=== PATIENT | female | born 1995 | race African-American/Black ===

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

== ENCOUNTER 2017-02-23 12:26 | Inpatient (IN) | payer OTHER ==
[~2017-02-23] VITALS: Ht 175.3 cm; Wt 95.7 kg
[~2017-02-23 12:26] MED LIST changes: -NAPR250T2 PO; +NAPR250T6 PO
[2017-02-23] MEDS ORDERED: CITRIC ACID/SODIUM CITRATE 30 ML SOLUTION. PO PRN (13:00)
[2017-02-23] MEDS ORDERED: AMPICILLIN SODIUM 2 GM in IV NORMAL SALINE 100ML 100 ML IV ONE (13:00)
[2017-02-23] MEDS ORDERED: LIDOCAINE 1% PF 30 ML VIAL. INJ PRN (13:00)
[2017-02-23] MEDS ORDERED: MAG HYDROX/ALUMINUM HYD/SIMETH 30 ML ORAL.SUSP PO PRN ×2 (13:00→13:30)
[2017-02-23] MEDS ORDERED: IBUPROFEN 600 MG TABLET. PO PRN (13:00)
[2017-02-23] MEDS ORDERED: TERBUTALINE 1 MG/ML VIAL. SQ PRN (13:00)
[2017-02-23] MEDS ORDERED: OXYTOCIN 30 UNIT/500 ML PREMIX 500 ML IV PRN ×3 (13:00→13:30)
[2017-02-23] MEDS ORDERED: AMPICILLIN SODIUM IV Push 2 GM VIAL. IVP ONE (13:00)
[2017-02-23] MEDS ORDERED: BUTORPHANOL 2 MG/ML VIAL. IV PRN ×2 (13:00)
[2017-02-23] MEDS ORDERED: 0.9 % SODIUM CHLORIDE 10 ML DISP.SYRIN. IV PRN ×2 (13:00→13:30)
--- NOTE | 2017-02-23 13:27 | PDOC1 ---
OB - History Hx of Present Care: Limited Care Ultrasounds: Normal mid trimester US Obstetrical Complications: None Medical Complications: None Past Family/Social History * Past Medical, Surgical, Family and Obstetric Histories reviewed from chart. Blood Type: Unknown Rubella: Unknown RPR/VDRL: Unknown GBS Status: Unknown HBsAG: Unknown OB - Chief Complaint & HPI Date of Admission: Date of Admission: Feb 23, 2017 at 12:26 Chief Complaint/History : 1 Para: 0 EDC: Feb 09, 2017 Reason for admission: active labor Problems: OB - Admission Exam Physical Exam HEENT: Normal, Nasal Mucosa Normal, Oropharynx Normal, Moist Membranes, Fontanelles Normal Heart: Regular Rate Lungs: Clear, Equal Abdomen: Gravid Extremities: Normal Pulses, No tenderness or swelling Reflexes: Normal Cervical Dilatation: 10cm Station: +3 Membranes: Ruptured Heart Rate: Normal Accelerations: Accelerations Present Contractions on Admission: < 5 Minutes Apart Intensity: Firm Assessment/Plan Assessment/Plan TIUP Labor ACSVD Problems: MADELINE KNIGHT MD Feb 23, 2017 13:27
--- NOTE | 2017-02-23 13:29 | PDOC ---
VAGINAL DELIVERY DATE DATE: 02/23/17 TIME: 13:27 : 1 EDC: Feb 09, 2017 VAGINAL DELIVERY: VTX VACCUM ASSISTED: No PLACENTA: Spontaneous SEX: Female WEIGHT 4105gm Nuchal Cord: No Amniotic Fluid: Clear PAIN: Natural EXTENSION: Yes EBL 400cc COMPLICATIONS None CONDITION Stable Signs of Intrauterine Infectio: None Shoulder Dystocia: No DIAGNOSIS TIUP del Problems: MADELINE KNIGHT MD Feb 23, 2017 13:29
[2017-02-23] MEDS ORDERED: ZOLPIDEM 5 MG TABLET. PO PRN (13:30)
[2017-02-23] MEDS ORDERED: diphenhydrAMINE HCL 25 MG CAPSULE PO PRN (13:30)
[2017-02-23] MEDS ORDERED: ACETAMINOPHEN 325 MG TABLET. PO PRN (13:30)
[2017-02-23] MEDS ORDERED: BENZOCAINE 20% TOPICAL AEROSOL SPRAY 57GM CAN. TP PRN (13:30)
[2017-02-23] MEDS ORDERED: SIMETHICONE 80 MG TAB.CHEW PO PRN (13:30)
[2017-02-23] MEDS ORDERED: HYDROCORTISONE 1% TOPICAL OINTMENT 30GM TUBE. TP PRN (13:30)
[2017-02-23] MEDS ORDERED: PHENYLEPH/MINERAL OIL/PETROLAT RECTAL OINTMENT 28GM TUBE. RC PRN (13:30)
[2017-02-23] MEDS ORDERED: MAGNESIUM HYDROXIDE 2,400 MG/30 ML ORAL.SUSP. PO PRN (13:30)
--- NOTE | 2017-02-23 13:31 | PDOC3 ---
OB DISCHARGE SUMMARY DATE OF ADMISSION: 02/23/17 DATE OF DISCHARGE: 02/25/17 REASON FOR ADMISSION: Onset of labor PROCEDURES: Ultrasound INTRAPARTUM PROCEDURES: Spontanous Vag Deliv PROCEDURES: None OPERATIONS: None DISCHARGE DIAGNOSIS: Term Delivered DISCHARGE INFORMATION: Activity, Diet HOSPITAL COURSE Unremarkable CONDITION AT DISCHARGE Stable MADELINE KNIGHT MD Feb 23, 2017 13:31
[2017-02-23 14:04] LABS: HEMATOCRIT 30.9 % (36.0-47.0); HEMOGLOBIN 9.9 g/dL (12.0-15.5); RED BLOOD COUNT 3.95 x10^6/uL (3.50-5.40); WHITE BLOOD COUNT 11.2 x10^3/uL (4.0-11.0)
[2017-02-23] MEDS: IV RINGERS,LACTATED 1000ML 1,000 ML IV SCH ×2 (14:10→20:32)
[2017-02-23 14:42] VITALS: BP 132/77
[2017-02-23 15:30] VITALS: BP 97/58
[2017-02-23] MEDS: IBUPROFEN 800 MG TABLET. PO SCH (15:55)
[2017-02-23] MEDS ORDERED: FERROUS SULFATE 325 MG TABLET. PO SCH (17:00)
[2017-02-23 18:44] VITALS: BP 105/55
[2017-02-23 19:20] VITALS: BP 114/73
[2017-02-24 00:01] VITALS: BP 107/59
[2017-02-24] MEDS: IBUPROFEN 800 MG TABLET. PO SCH ×4 (00:04→20:24)
[2017-02-24 06:25] VITALS: BP 106/57
[2017-02-24 09:00] VITALS: BP 108/70
[2017-02-24] MEDS ORDERED: DOCUSATE SODIUM 100 MG CAPSULE. PO PRN (09:30)
[2017-02-24] MEDS: FERROUS SULFATE 325 MG TABLET. PO SCH (10:02)
--- NOTE | 2017-02-24 13:17 | PDOC ---
OB Progress Note Date of Service 02/24/17 Time of Evaluation 1315 Notes Pt. feeling well. No complaints. Lab Laboratory Tests Test 02/23/17 13:45 02/24/17 08:20 White Blood Count 11.2 x10^3/uL (4.0-11.0) Red Blood Count 3.95 x10^6/uL (3.50-5.40) Hemoglobin 9.9 g/dL (12.0-15.5) Hematocrit 30.9 % (36.0-47.0) 26.6 % (36.0-47.0) Mean Corpuscular Volume 78 fL (79-100) Mean Corpuscular Hemoglobin 25 pg (25-35) Mean Corpuscular Hemoglobin Concent 32 g/dL (31-37) Red Cell Distribution Width 13.0 % (11.5-14.5) Platelet Count 236 x10^3/uL (140-400) Laboratory Tests Test 02/23/17 13:45 02/24/17 08:20 White Blood Count 11.2 x10^3/uL (4.0-11.0) Red Blood Count 3.95 x10^6/uL (3.50-5.40) Hemoglobin 9.9 g/dL (12.0-15.5) Hematocrit 30.9 % (36.0-47.0) 26.6 % (36.0-47.0) Mean Corpuscular Volume 78 fL (79-100) Mean Corpuscular Hemoglobin 25 pg (25-35) Mean Corpuscular Hemoglobin Concent 32 g/dL (31-37) Red Cell Distribution Width 13.0 % (11.5-14.5) Platelet Count 236 x10^3/uL (140-400) Medications Current Medications Sodium Chloride (Normal Saline Flush) 3 ml QSHIFT PRN IV AFTER MEDS AND BLOOD DRAWS; Start 02/23/17 at 13:00; Stop 02/23/17 at 20:40; Status DC Ringer's Solution 1,000 ml @ 125 mls/hr Q8H IV Last administered on t 14:10; Start 02/23/17 at 13:00; Stop 02/23/17 at 20:40; Status DC Butorphanol Tartrate (Stadol) 1 mg PRN Q1HR PRN IV mild to moderate labor pain ; Start 02/23/17 at 13:00 Butorphanol Tartrate (Stadol) 2 mg PRN Q1HR PRN IV Severe labor pain; Start at 13:00 Al Hydroxide/Mg Hydroxide (Mylanta Plus Xs) 30 ml PRN Q4HRS PRN PO HEARTBURN / GAS; Start 02/23/17 at 13:00 Citric Acid/ Sodium Citrate (Bicitra) 30 ml 1X PRN PRN PO DYSPEPSIA; Start 03/30 at 13:00; Stop 02/24/17 at 12:59; Status DC Terbutaline Sulfate (Brethine) 0.25 mg 1X PRN PRN SQ SEE COMMENTS; Start 02/23 at 13:00; Stop 02/24/17 at 12:59; Status DC Lidocaine HCl 30 ml 1X PRN PRN INJ SEE COMMENTS Last administered on 14:09; Start 02/23/17 at 13:00; Stop 02/23/17 at 20:40; Status DC Ampicillin Sodium 2 gm/Sodium Chloride 100 ml @ 200 mls/hr 1X ONCE IV ; Start 02/23/17 at 13:00; Stop 02/23/17 at 13:29; Status DC Oxytocin/Sodium Chloride 500 ml @ 0 mls/hr CONT PRN IV SEE I/O RECORD Last administered on 02/23/17 14:11; Start 02/23/17 at 13:00; Stop 02/23/17 at 20 :40; Status DC Oxytocin/Sodium Chloride 500 ml @ 0 mls/hr CONT PRN PRN IV Post delivery bleeding; Start 02/23/17 at 13:00; Stop 02/23/17 at 20:40; Status DC Ibuprofen (Motrin) 600 mg PRN Q6HRS PRN PO PAIN; Start 02/23/17 at 13:00 Ampicillin Sodium (Omnipen) 2 gm 1X ONCE IVP ; Start 02/23/17 at 13:00; Stop 02/23/17 at 13:01; Status Cancel Sodium Chloride (Normal Saline Flush) 10 ml QSHIFT PRN IV AFTER MEDS AND BLOOD DRAWS; Start 02/23/17 at 13:30; Stop 02/23/17 at 20:40; Status DC Oxytocin/Sodium Chloride 500 ml @ 62.5 mls/hr CONT PRN IV SEE I/O RECORD; Start 02/23/17 at 13:30; Stop 02/23/17 at 21:29; Status DC Acetaminophen (Tylenol) 650 mg PRN Q6HRS PRN PO MILD PAIN / TEMP Last administered on 02/24/17 06:35; Start 02/23/17 at 13:30 Ibuprofen (Motrin) 800 mg Q8HRS PO Last administered on 02/24/17 00:04; Start 02/23/17 at 14:00 Magnesium Hydroxide (Milk Of Magnesia) 2,400 mg PRN DAILY PRN PO CONSTIPATION; Start 02/23/17 at 13:30 Al Hydroxide/Mg Hydroxide (Mylanta Plus Xs) 30 ml PRN Q4HRS PRN PO HEARTBURN / GAS; Start 02/23/17 at 13:30; Status Cancel Simethicone (Gas-X) 80 mg PRN AFTMEALHC PRN PO GAS / BLOATING; Start 02/23/17 at 13:30 Diphenhydramine HCl (Benadryl) 25 mg PRN Q6HRS PRN PO ITCHING; Start 02/23/17 at 13:30 Benzocaine (Americaine) 1 spray PRN QID PRN TP TOPICAL PAIN Last administered on 02/23/17 15:57; Start 02/23/17 at 13:30 Phenyleph/Shark Oil/Min Oil/Petrol (Preparation H) 1 claus PRN QID PRN RC RECTAL PAIN; Start 02/23/17 at 13:30 Hydrocortisone (Cortaid) 1 claus PRN QID PRN TP RECTAL PAIN; Start 02/23/17 at 13:30 Ferrous Sulfate (Feosol) 325 mg BIDWMEALS PO ; Start 02/23/17 at 17:00; Stop 02/23/17 at 20:40; Status DC Zolpidem Tartrate (Ambien) 5 mg PRN QHS PRN PO INSOMNIA, MAY REPEAT X1; Start 02/23/17 at 13:30 Info (Do NOT chart on this placeholder) 1 ea 1X PRN PRN MC SEE COMMENTS; Start 02/23/17 at 13:30 Ferrous Sulfate (Feosol) 325 mg DAILYWBKFT PO Last administered on 02/24/17 10:02; Start 02/24/17 at 10:00 Docusate Sodium (Colace) 100 mg PRN DAILY PRN PO CONSTIPATION Last administered on 02/24/17t 10:02; Start 02/24/17 at 09:30 Active Scripts Active Naproxen 250 Mg Tablet 250 Mg PO PRN BID PRN Take one pill a by mouth up to twice daily as needed for pain. Take with food, stop use if stomach upset develops. Percocet 5-325 Mg Tablet (Oxycodone/Acetaminophen) 1 Each Tablet 1 Tab PO Q6HRS One tablet by mouth up to once every 6 hours as needed for pain. Caution with this medication as it may cause drowsiness. Bactrim Ds Tablet (Sulfamethoxazole/Trimethoprim) 1 Each Tablet 1 Tab PO BID Take one pill a by mouth twice daily for 7 days to treat infection. Bactrim Ds Tablet (Sulfamethoxazole/Trimethoprim) 1 Each Tablet 1 Tab PO BID [place] 5-325 Tablet (Acetaminophen/Hydrocodone Bitart) 1 Each Tablet 1-2 Tab PO Q4-6HRS Clindamycin Hcl 150 Mg Capsule 3 Cap PO TID 10 Days [place] 5-325 Tablet (Acetaminophen/Hydrocodone Bitart) 1 Each Tablet 1 Tab PO PRN Q6HRS PRN [place] 5-325 Tablet (Acetaminophen/Hydrocodone Bitart) 1 Each Tablet 1 Tab PO PRN Q6HRS PRN Bactrim Ds Tablet (Sulfamethoxazole/Trimethoprim) 1 Each Tablet 1 Each PO BID Exam Abd: soft, non tender, fundus firm Assessment PPD#1 s/p Plan of Care: Continue current Roberto Carlos, BAKARI Tobin Jr, MD Feb 24, 2017 13:17
[2017-02-24 13:25] VITALS: BP 109/71
[2017-02-24 17:45] VITALS: BP 114/77
[2017-02-24 20:05] VITALS: BP 111/66
[2017-02-25 04:50] VITALS: BP 113/62
[2017-02-25] MEDS: IBUPROFEN 800 MG TABLET. PO SCH (05:16)
[2017-02-25] MEDS: FERROUS SULFATE 325 MG TABLET. PO SCH (07:59)
[2017-02-25 14:15] VITALS: BP 99/62
[2017-02-25] MEDS ORDERED: NAPR500T4 PO (18:14)
[2017-02-25] MEDS ORDERED: HYDR-971 PO (18:14)
[2017-02-25 19:05] VITALS: BP 108/72
== END 2017-02-25 20:55 | disposition home or self-care (01) | DRG 775 ==
LOC: OBSVTOIN 12:26 → 3 SO LND 12:26 → 3 NORTH 16:23
PROVIDERS: ADMIT Specialist; ATTEND Specialist
PROC: 10E0XZZ Delivery of Products of Conception, External Approach (ICD-10-PCS; principal; 2017-02-23)
PROC: 0HQ9XZZ Repair Perineum Skin, External Approach (ICD-10-PCS; 2017-02-23)
DX: O69.81X0 Labor and delivery complicated by cord around neck, without compression, not applicable or unspecified (principal); O70.0 First degree perineal laceration during delivery; Z3A.34 34 weeks gestation of pregnancy; Z37.0 Single live birth
CPT/HCPCS: 36415; 85014; 85027; 86593; 86850; 86900; 86901; G0378; J2590; J7120

== ENCOUNTER 2019-01-26 19:05 | Emergency (ER) | payer OTHER ==
[~2019-01-26] VITALS: Ht 175.3 cm; Wt 77.1 kg
[~2019-01-26 19:05] MED LIST changes: +HYDR-3164 PO; -HYDR-971 PO; +NAPR-514 PO; -OXYC-323 PO; +OXYC1TAB15 PO
[2019-01-26 20:08] VITALS: BP 126/63
[2019-01-26] MEDS ORDERED: LIDOCAINE 1%/EPI 1:100,000 20 ML VIAL. SQ ONE (21:15)
--- NOTE | 2019-01-27 00:52 | PHYS DOC ---
Past Medical History Past Medical History: Abscess Past Surgical History: No Surgical History Alcohol Use: None Drug Use: None Adult General Chief Complaint Chief Complaint: ABSCESS HPI HPI Patient is a 23 year old AA female, accompanied the emergency room by her aunt, who presents to the emergency room with complaints of an abscess to her left buttock for the last week. Patient denies any drainage from the site. She denies any fever. Patient reports history of abscesses in the similar area for several months. She currently rates her pain a 5 out of 10 on pain scale, the pain incr eases with palpation and pressure, patient denies any alleviating symptoms. Review of Systems Review of Systems Constitutional: Denies fever or chills [] GI: Denies abdominal pain, nausea, or vomiting : Denies dysuria or hematuria [] Musculoskeletal: Denies back pain or joint pain [] Integument: See history of present illness Neurologic: Denies headache Complete systems were reviewed and found to be within normal limits, except as documented in this note. Current Medications Current Medications Current Medications Medications (Trade) Dose Ordered Sig/Angie Start Time Stop Time Status Last Admin Dose Admin Lidocaine/ Epinephrine (LIDOCAINE 1%-EPI 1:100,000 Multi-Dose) 20 ml 1X ONCE 01/26/19 21:15 01/26/19 21:16 DC 01/26/19 21:15 20 ML Allergies Allergies Allergies Coded Allergies Type Severity Reaction Last Updated Verified No Known Drug Allergies 02/27/16 No Physical Exam Physical Exam Constitutional: Well developed, well nourished, no acute distress, non-toxic appearance. [] HENT: Normocephalic, atraumatic, bilateral external ears normal, nose normal. [] Eyes: PERRLA, EOMI, conjunctiva normal, no discharge. [] Neck: Normal range of motion, no stridor. [] Lungs & Thorax: Respirations even and unlabored, no retractions, no respiratory distress Skin: Warm, dry; erythema and warmth noted to the medial left buttock with no visible pustule, there is a fluctuant area noted medially consistent with an abscess Back: No tenderness Extremities: No cyanosis, no clubbing, ROM intact Neurologic: Alert and oriented X 3, no focal deficits noted. [] Psychologic: Affect normal, judgement normal, mood normal. [] Current Patient Data Vital Signs Vital Signs Date Time Temp Pulse Resp B/P (MAP) Pulse Ox O2 Delivery O2 Flow Rate FiO2 01/26/19 20:08 97.8 82 18 126/63 (84) 100 Room Air 97.8 EKG EKG [] Radiology/Procedures Radiology/Procedures [] Course & Med Decision Making Course & Med Decision Making Pertinent Labs and Imaging studies reviewed. (See chart for details) dx: L Buttock abscess I&D as documented under procedures. [facility] was down at the time of patient discharge. She was given written prescriptions for Augmentin 875 mg 1 tablet by mouth twice a day �7 days, and hydrocodone 5/325 mg tablets 1 every 6 hours as needed for pain #8. Pt was instructed to return to the ER in 2 days for packing removal, apply moist heat to the area several times a day and clean bandage as needed. PT verbalized an understanding of home care, medications, follow-up, and return to ED instructions and was in agreement with the plan of care. [] Dragon Disclaimer Dragon Disclaimer This electronic medical record was generated, in whole or in part, using a voice recognition dictation system. Departure Departure Impression: Primary Impression: Left buttock abscess Disposition: HOME, SELF-CARE Condition: STABLE Referrals: NO PCP (PCP) Incision and Drainage Incision and Drainage : Site: left buttock Blade Size: 11 I & D Procedure: betadine prep, gauze wick placed (half-inch iodoform gauze) Progress 1% lidocaine with epi was injected locally for anesthesia. An 11 blade was used to make a 1 cm incision to the medial left buttock, a large amount of milky, thin, pus was expressed from the site. This was followed by bloody drainage. The site was explored with curved forceps a moderate amount of iodoform gauze was then packed into the abscess site. Patient tolerated procedure well, minimal blood loss. JESICA OWENS CUSTOMER SERVICE AGENT Jan 27, 2019 00:52
== END 2019-01-26 23:10 | disposition home or self-care (01) ==
LOC: ER 19:05
DX: L02.31 Cutaneous abscess of buttock (principal)
CPT/HCPCS: 10060; 99283; J3490

== ENCOUNTER 2020-01-22 20:34 | Observation (INO) | payer OTHER | END 2020-01-22 21:50 | disposition home or self-care (01) | LOC: 3 SO LND 20:34 | PROVIDERS: ADMIT Obstetrics & Gynecology; ATTEND Obstetrics & Gynecology | DX: O62.9 Abnormality of forces of labor, unspecified (principal); O26.899 Other specified pregnancy related conditions, unspecified trimester; R10.2 Pelvic and perineal pain; Z3A.00 Weeks of gestation of pregnancy not specified | CPT/HCPCS: 59025; G0378; G0379 ==

== ENCOUNTER → 2020-02-18 | Outpatient (CLI) | payer OTHER ==
[2020-02-18 15:25] LABS: HEMATOCRIT 29.6 % (36.0-47.0); HEMOGLOBIN 9.8 g/dL (12.0-15.5); MEAN CORPUSCULAR HEMOGLOBIN 27 pg (25-35); MEAN CORPUSCULAR HGB CONC 33 g/dL (31-37); MEAN CORPUSCULAR VOLUME 81 fL (79-100); PLATELET COUNT 232 x10^3/uL (140-400); RED BLOOD COUNT 3.65 x10^6/uL (3.50-5.40); RED CELL DISTRIBUTION WIDTH 13.4 % (11.5-14.5); WHITE BLOOD COUNT 8.6 x10^3/uL (4.0-11.0)
[2020-02-18 15:59] LABS: FREE T4 0.89 ng/dL (0.76-1.46); THYROID STIM HORMONE (TSH) 1.904 uIU/mL (0.358-3.74)
[2020-02-19 19:13] LABS: RUBELLA IGG ANTIBODY 2.17 index (Immune >0.99)
== END ==
LOC: LAB 14:42
PROVIDERS: ATTEND Obstetrics & Gynecology
DX: Z34.92 Encounter for supervision of normal pregnancy, unspecified, second trimester (principal); Z3A.00 Weeks of gestation of pregnancy not specified
CPT/HCPCS: 36415; 84439; 84443; 85027; 85660; 86592; 86703; 86762; 86787; 86803; 86850; 86900; 86901; 87340

== ENCOUNTER → 2020-02-29 | Outpatient (CLI) | payer OTHER ==
--- NOTE | 2020-02-29 18:00 | RAD ---
EXAM: Ultrasound OB Greater than 14 weeks INDICATION: Reason: ENCOUNTER FOR PREG RELATED EXAM IN SECOND TRIMESTER / Spl. Instructions: / History: TECHNIQUE: Real-time obstetrical ultrasound was performed with permanent freeze-frame documentation. COMPARISON: None. FINDINGS: POSITION: Breech HEART RATE: 158 bpm BRODY: 23 cm PLACENTA: Anterior CERVICAL LENGTH: Cervix not well visualized this exam. MATERNAL UTERUS: Unremarkable. MATERNAL ADNEXA: Unremarkable. AGE/DATES: Gestational Age by LMP: 35 weeks 3 days Gestation Age by US: 36 weeks 1 day EDC by LMP: April 01, 2020 EDC by US: March 27, 2020 WEIGHT: 2911 grams +/- 431 grams PERCENTILE WEIGHT: 59% BIOMETRIC PARAMETERS: BPD: 8.7 cm corresponding with 35 weeks 1 day HC: 32.9 cm corresponding with 37 weeks 3 days AC: 33.4 cm corresponding with 34 weeks 3 days FL: 6.7 cm corresponding with 34 weeks 3 days ANATOMY: CARDIAC: Normal four chamber heart. Normal right ventricular outflow tract and left ventricular outflow tract. UMBILICAL CORD: Normal 3 vessel cord. Normal cord insertion. BRAIN: Not visualized in detail. NOSE/LIPS: Unremarkable. SPINE: Unremarkable. EXTREMITIES: Unremarkable. STOMACH: Unremarkable. KIDNEYS: Unremarkable. BLADDER: Unremarkable. IMPRESSION: Normal OB ultrasound demonstrating a single viable fetus in breech position. Estimated gestational age of 36 weeks 1 day and EDC of March 27, 2020. breathing not well seen, likely due to developing ossification of the calvarium. Electronically signed by: Patricia Moreno MD (02/29/2020 5:57 PM) [id number]
== END ==
LOC: US 15:11
PROVIDERS: ATTEND Obstetrics & Gynecology
DX: Z34.93 Encounter for supervision of normal pregnancy, unspecified, third trimester (principal); Z3A.36 36 weeks gestation of pregnancy
CPT/HCPCS: 76805

== ENCOUNTER 2020-03-06 16:35 | Emergency (ER) | payer OTHER ==
[~2020-03-06] VITALS: Ht 175.3 cm; Wt 105.3 kg
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
== END 2020-03-06 18:46 | disposition home or self-care (01) ==
LOC: ER 16:35
DX: O26.893 Other specified pregnancy related conditions, third trimester (principal); G89.11 Acute pain due to trauma; M25.561 Pain in right knee; M54.9 Dorsalgia, unspecified; Z3A.34 34 weeks gestation of pregnancy; V98.8XXA Other specified transport accidents, initial encounter; Y93.89 Activity, other specified; Y92.413 State road as the place of occurrence of the external cause; Y99.8 Other external cause status
CPT/HCPCS: 99281

== ENCOUNTER 2020-03-06 19:05 | Observation (INO) | payer OTHER ==
[2020-03-06 17:22] VITALS: BP 126/63
[2020-03-26] MEDS ORDERED: IBUP-1060 PO (11:18)
[2020-03-26] MEDS ORDERED: FERR325T14 PO (11:18)
[2020-03-26] MEDS ORDERED: DOCU-109 PO (11:18)
== END 2020-03-06 20:20 | disposition home or self-care (01) ==
LOC: 3 SO LND 19:05
PROVIDERS: ADMIT Obstetrics & Gynecology; ATTEND Obstetrics & Gynecology
DX: O99.891 Other specified diseases and conditions complicating pregnancy (principal); M54.9 Dorsalgia, unspecified; Z3A.36 36 weeks gestation of pregnancy; V89.2XXA Person injured in unspecified motor-vehicle accident, traffic, initial encounter; Y93.89 Activity, other specified; Y92.89 Other specified places as the place of occurrence of the external cause; Y99.8 Other external cause status
CPT/HCPCS: G0378; G0379

== ENCOUNTER 2020-11-30 17:30 | Emergency (ER) | payer OTHER ==
[~2020-11-30] VITALS: Ht 175.3 cm; Wt 90.0 kg
[~2020-11-30 17:30] MED LIST changes: -CLIN150C14 PO; +CLIN150C16 PO; +DOCU-109 PO; +FERR325T14 PO; +IBUP-1060 PO; +NAPR-699 PO; -NAPR250T6 PO
[2020-11-30] MEDS ORDERED: ACETAMINOPHEN 500 MG TABLET PO ONE (18:15)
--- NOTE | 2020-11-30 18:26 | RAD ---
Single view chest dated 11/30/2020 6:23 PM: COMPARISON: None Clinical Indication: Cough. Findings: Single upright portable exam of the chest was performed. Heart and mediastinal contours are stable. T here is patchy airspace disease at the perihilar regions and bilateral lung bases with blunting of le ft costophrenic sulcus. No pneumothorax. IMPRESSION: 1. Mild patchy bibasilar airspace disease, atelectasis versus early pneumonia. Covid 19 pneumonitis n ot excluded. Electronically signed by: Roger Stevenson MD (11/30/2020 6:24 PM) MARY
[2020-11-30 18:54] LABS: INFLUENZA A PATIENT NEGATIVE (NEGATIVE); INFLUENZA B PATIENT NEGATIVE (NEGATIVE)
[2020-11-30] MEDS ORDERED: LIDOCAINE 1% PF 2 ML VIAL. INJ ONE (19:30)
[2020-11-30] MEDS ORDERED: cefTRIAXone IM 1 GM VIAL IM ONE (19:30)
[2020-11-30 19:49] VITALS: BP 111/68
[2020-11-30] MEDS ORDERED: ALBU2.5V8 IH ×2 (20:09→21:36)
[2020-11-30] MEDS ORDERED: GUAI118L13 PO ×2 (20:09→21:36)
[2020-11-30] MEDS ORDERED: AMOX1TAB61 PO ×2 (20:09→21:36)
--- NOTE | 2020-11-30 20:11 | PHYS DOC ---
Past Medical History Past Medical History: Abscess Past Surgical History: No Surgical History Smoking Status: Never Smoker Alcohol Use: None Drug Use: None General Adult EDM: Chief Complaint: FLU SYMPTOM HPI: HPI: Patient is a 25-year-old female presenting today complaining of cough, subjective fevers, symptoms for 1 week. Patient son was diagnosed with COVID-19 2 weeks ago. Patient denies any shortness of breath. Review of Systems: Review of Systems: Constitutional: Reports fever Eyes: Denies change in visual acuity. [] HENT: Denies nasal congestion or sore throat. [] Respiratory: Reports cough, denies shortness of breath. [] Cardiovascular: Denies chest pain or edema. [] GI: Denies abdominal pain, nausea, vomiting, bloody stools or diarrhea. [] : Denies dysuria. [] Musculoskeletal: Denies back pain or joint pain. [] Integument: Denies rash. [] Neurologic: Denies headache, focal weakness or sensory changes. [] ] Psychiatric: Denies depression or anxiety. [] Heart Score: C/O Chest Pain: N/A Risk Factors: Risk Factors: DM, Current or recent (<one month) smoker, HTN, HLP, family history of CAD, obesity. Risk Scores: Score 0 - 3: 2.5% MACE over next 6 weeks - Discharge Home Score 4 - 6: 20.3% MACE over next 6 weeks - Admit for Clinical Observation Score 7 - 10: 72.7% MACE over next 6 weeks - Early Invasive Strategies Current Medications: Current Medications Medications (Trade) Dose Ordered Sig/Angie Start Time Stop Time Status Last Admin Dose Admin Acetaminophen (Tylenol) 1,000 mg 1X ONCE 11/30/20 18:15 11/30/20 18:16 DC 11/30/20 18:19 1,000 MG Ceftriaxone Sodium (Rocephin Im) 1 gm 1X ONCE 11/30/20 19:30 11/30/20 19:31 DC 11/30/20 19:38 1 GM Lidocaine HCl (Xylocaine-Mpf 1% 2ml Vial) 2 ml 1X ONCE 11/30/20 19:30 11/30/20 19:31 DC 11/30/20 19:38 2 ML Allergies: Allergies: Allergies Coded Allergies Type Severity Reaction Last Updated Verified No Known Drug Allergies 03/06/20 No Physical Exam: PE: Constitutional: Well developed, well nourished, no acute distress, non-toxic appearance. [] HENT: Normocephalic, atraumatic, bilateral external ears normal, oropharynx moist, no oral exudates, nose normal. [] Eyes: PERRLA, EOMI, conjunctiva normal, no discharge. [] Neck: Normal range of motion, no tenderness, supple, no stridor. [] Cardiovascular:Heart rate regular rhythm, no murmur [] Lungs & Thorax: Patient is coughing in the ED, diminished breath sounds. Abdomen: Bowel sounds normal, soft, no tenderness, no masses, no pulsatile masses. [] Skin: Warm, dry, no erythema, no rash. [] Back: No tenderness, no CVA tenderness. [] Extremities: No tenderness, no cyanosis, no clubbing, ROM intact, no edema. [] Neurologic: Alert and oriented X 3, normal motor function, normal sensory function, no focal deficits noted. [] Psychologic: Affect normal, judgement normal, mood normal. [] Current Patient Data: Labs: Laboratory Tests Test 11/30/20 18:22 Influenza Type A Antigen Negative (NEGATIVE) Influenza Type B Antigen Negative (NEGATIVE) SARS-CoV-2 Antigen (Rapid) Negative (NEGATIVE) Vital Signs: Vital Signs Date Time Temp Pulse Resp B/P (MAP) Pulse Ox O2 Delivery O2 Flow Rate FiO2 11/30/20 19:49 105 111/68 (82) 98 Room Air 11/30/20 18:06 98.9 24 98.9 EKG: EKG: [] Radiology/Procedures: Radiology/Procedures: []PROCEDURE: CHEST AP ONLY Single view chest dated 11/30/2020 6:23 PM: COMPARISON: None Clinical Indication: Cough. Findings: Single upright portable exam of the chest was performed. Heart and mediastinal contours are stable. There is patchy airspace disease at the perihilar regions and bilateral lung bases with blunting of left costophrenic sulcus. No pneumothorax. IMPRESSION: 1. Mild patchy bibasilar airspace disease, atelectasis versus early pneumonia. Covid 19 pneumonitis not excluded. Electronically signed by: Roger Stevenson MD (11/30/2020 6:24 PM) [facility] [place] DICTATED and SIGNED BY: ROGER STEVENSON MD DATE: 11/30/20 [id number] 0 Course & Med Decision Making: Course & Med Decision Making Pertinent Labs and Imaging studies reviewed. (See chart for details) This is a 25-year-old female patient presenting to the ED today complaining of cough and a fever, symptoms for 1 week. Patient son tested positive for Covid 2 weeks ago. Vitals on arrival to the ED temperature 98.9, heart rate 126 on arrival, blood pressure 168/78, O2 sats 95% on room air. Patient was given 1 g of Tylenol. Heart rate has come down to 105. Blood pressure has also come down to111/68 Chest x-ray interpreted by radiologist could not rule out Covid pneumonia. Rapid Covid test is negative. Patient was given Rocephin in the ED and discharged on Augmentin. Instructed to push fluids. Take Tylenol/Motrin for pain or fever. Instructed return to the ED at any point symptoms worsen. Dragon Disclaimer: Dragon Disclaimer: This electronic medical record was generated, in whole or in part, using a voice recognition dictation system. Departure Departure Impression: Primary Impression: Fever Qualified Codes: R50.9 - Fever, unspecified Additional Impression: Pneumonia Qualified Codes: J18.9 - Pneumonia, unspecified organism Disposition: HOME / SELF CARE / HOMELESS Condition: STABLE Referrals: NO PCP (PCP) follow up next week Patient Instructions: Fever, Adult, Pneumonia, Adult, [id number] Additional Instructions: You were evaluated in the emergency room with symptoms consistent of COVID-19. Your chest x-ray shows you could have COVID-19 pneumonia. We put you on antibiotics, ensure you complete them. Please take Tylenol or Motrin for pain or fever please rest, push fluids, maintain good hand hygiene. Come back to the ED at any point symptoms worsen Quarantine yourself for 2 weeks Scripts Albuterol Sulfate (Proair Hfa) 8.5 Gm Hfa.aer.ad 2 PUFF IH PRN Q4-6HRS PRN for wheezing for 21 Days, #1 INHALER 0 Refills Prov: SHAHRIAR COTTO APRN 11/30/20 Guaifenesin/Codeine Phosphate (GUAIFENESIN-CODEINE SYRUP) 118 Ml Liquid 5 ML PO Q6HRS, #120 ML Prov: SHAHRIAR COTTO FRONT DESK REPRESENTATIVE 11/30/20 Amoxicillin/Potassium Clav (AUGMENTIN 875-125 TABLET) 1 Each Tablet 1 TAB PO BID for 7 Days, #14 TAB 0 Refills Prov: SHAHRIAR COTTO APRN 11/30/20 SHAHRIAR COTTO APRN Nov 30, 2020 20:11
--- NOTE | 2020-12-01 17:16 | NUR ---
IP: Pt returned my call, informed her of the negative coivd test, Pt verbalized understanding.
== END 2020-11-30 20:43 | disposition home or self-care (01) ==
LOC: ER 17:30
DX: J18.9 Pneumonia, unspecified organism (principal); Z20.822 Contact with and (suspected) exposure to COVID-19
CPT/HCPCS: 71045; 87426; 87804; 96372; 99284; J0696; J3490; U0003; U0005; 99283